=== PATIENT | male | born 1980 | race Caucasian/White ===

== ENCOUNTER 2021-07-03 21:52 | Emergency (ER) | payer OTHER ==
[2021-07-03 23:42] LABS: BASOPHIL 0.3 % (0-2); EOSINOPHIL 0.1 % (0-5); HCT 41.1 % (42.0-52.0); LYMPHOCYTE 8.6 % (15-48); MCHC 34.1 g/dL (32.0-36.0); MONOCYTE 5.6 % (0-12); MPV 8.7 fL (6.0-9.5); NEUTROPHIL 84.9 % (41-80); NRBC 0; PLT 483 K/uL (150-400); RBC 4.67 M/uL (4.70-6.00); RDW 13.4 % (11.5-14.0)
[2021-07-04 00:01] LABS: CREATININE 0.82 mg/dL (0.67-1.17); POTASSIUM 3.9 mmol/L (3.5-5.1)
== END 2021-07-04 02:50 ==
LOC: FER 21:52
PROVIDERS: Emergency Medicine Emergency Medical Services
DX: S40.012A Contusion of left shoulder, initial encounter (principal); S70.01XA Contusion of right hip, initial encounter; F17.210 Nicotine dependence, cigarettes, uncomplicated; V29.9XXA Motorcycle rider (driver) (passenger) injured in unspecified traffic accident, initial encounter; Y92.410 Unspecified street and highway as the place of occurrence of the external cause
CPT/HCPCS: 36415; 70450; 71101; 72125; 73030; 73502; 80048; 85025; G0480; J1885